=== PATIENT | female | born 1990 | race Caucasian/White ===

== ENCOUNTER 2016-11-08 10:19 | Emergency (ER) | payer BC ==
[~2016-11-08] VITALS: Ht 162.6 cm; Wt 56.7 kg
[2016-11-08 10:25] VITALS: BP 117/68
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
--- NOTE | 2016-11-08 11:02 | RAD ---
Right hand, 3 views, 11/08/2016: History: Hand pain, injury No fracture or dislocation is identified. IMPRESSION: No acute right hand abnormality is detected.
[2016-11-08] MEDS ORDERED: NAPR500T8 PO (11:22)
== END 2016-11-08 11:32 | disposition home or self-care (01) ==
LOC: ER 10:19
DX: S63.91XA Sprain of unspecified part of right wrist and hand, initial encounter (principal); Z88.2 Allergy status to sulfonamides; Z88.1 Allergy status to other antibiotic agents; V19.9XXA Pedal cyclist (driver) (passenger) injured in unspecified traffic accident, initial encounter; Y93.89 Activity, other specified; Y99.8 Other external cause status; Y92.89 Other specified places as the place of occurrence of the external cause
CPT/HCPCS: 29125; 73130; 99284-25